=== PATIENT | male | born 1990 | race Caucasian/White ===

== ENCOUNTER 2017-06-06 18:43 | Emergency (ER) | payer OTHER ==
[~2017-06-06] VITALS: Ht 172.7 cm; Wt 94.7 kg
[2017-06-06] MEDS ORDERED: IBUPROFEN 200 MG TABLET ONE (19:15)
[2017-06-06 19:30] LABS: HEMATOCRIT 53.2 % (39.2-51.8); HEMOGLOBIN 18.1 g/dL (13.7-18.0); WHITE BLOOD COUNT 14.8 x10^3/uL (3.4-10)
[2017-06-06] MEDS ORDERED: SODIUM CHLORIDE FLUSH 10ML SYR IVF ONE (19:30)
[2017-06-06] MEDS ORDERED: SODIUM CHLORIDE 0.9% 1,000ML IVBOLUS ONE ×2 (19:30→20:00)
[2017-06-06] MEDS ORDERED: IBUPROFEN 200 MG TABLET PO ONE (19:30)
[2017-06-06 19:41] LABS: BLOOD UREA NITROGEN 16 mg/dL (7-18)
[2017-06-06 20:05] LABS: RAPID INFLUENZA A Negative (Negative); RAPID INFLUENZA B Negative (Negative)
[2017-06-06] MEDS ORDERED: CEFTRIAXONE PMX 1GM/50ML 50 ML ONE (20:17)
[2017-06-06] MEDS ORDERED: CEFTRIAXONE PMX 1GM/50ML 50 ML IVPB ONE (20:30)
[2017-06-06 21:33] VITALS: BP 126/64
== END 2017-06-06 21:47 | disposition home or self-care (01) ==
LOC: ED 20:34
DX: B34.9 Viral infection, unspecified (principal)
CPT/HCPCS: 36415; 71010; 80048; 82040; 83605; 84145; 85025; 87040; 87400; 96361; 96365; 99285; J0696; J7030

== ENCOUNTER 2018-03-29 19:03 | Emergency (ER) | payer OTHER ==
[~2018-03-29] VITALS: Ht 172.7 cm; Wt 98.9 kg
[2018-03-29 19:38] LABS: MEAN CORPUSCULAR HEMOGLOBIN 31.1 pg (27.5-34.5); MEAN CORPUSCULAR HGB CONC 34.8 g/dL (33.2-36.2); MEAN CORPUSCULAR VOLUME 89.5 fL (81-97); MEAN PLATELET VOLUME 8.7 fL (7.4-10.4); PLATELET COUNT 296 x10^3/uL (130-400); RED BLOOD COUNT 5.64 x10^6/uL (4.38-5.82); RED CELL DISTRIBUTION WIDTH 12.4 % (9.4-14.8)
[2018-03-29 19:46] LABS: ALANINE AMINOTRANSFERASE 48 U/L (12-78); ALBUMIN 4.3 g/dL (3.4-5.0); ANION GAP 8 mmol/L (5-15); CALCIUM 9.1 mg/dL (8.5-10.1); CHLORIDE 103 mmol/L (98-107); CREATININE 1.44 mg/dL (0.7-1.3)
[2018-03-29 19:50] LABS: ALKALINE PHOSPHATASE 128 U/L (45-117); BILIRUBIN,TOTAL 0.4 mg/dL (0.2-1.0); TOTAL PROTEIN 8.3 g/dL (6.4-8.2); TROPONIN I < 0.015 ng/mL (0.000-0.045)
[2018-03-29 20:01] LABS: BASOPHILS # (AUTO) 0.06 x10^3/uL (0-0.1); BASOPHILS % (AUTO) 0 % (0-1); EOSINOPHILS # (AUTO) 0.19 x10^3/uL (0-0.4); EOSINOPHILS % (AUTO) 1 % (1-7); LYMPHOCYTES # (AUTO) 3.62 x10^3/uL (1-3.4); LYMPHOCYTES % (AUTO) 18 % (22-44); MD SCAN; MONOCYTES % (AUTO) 6 % (2-9); NEUTROPHILS # (AUTO) 15.04 x10^3/uL (1.8-6.8); NEUTROPHILS % (AUTO) 74 % (42-75)
[2018-03-29] MEDS ORDERED: SODIUM CHLORIDE 0.9% 1,000ML IVBOLUS ONE (20:30)
[2018-03-29] MEDS ORDERED: SODIUM CHLORIDE FLUSH 10ML SYR IVF ONE (20:30)
[2018-03-29] MEDS ORDERED: MORPHINE SULFATE 4 MG/ML, 1ML ONE (20:55)
[2018-03-29] MEDS ORDERED: ONDANSETRON ODT 4 MG ONE (20:55)
[2018-03-29] MEDS ORDERED: morphine SULFATE 10 MG/ML, 1ML IVPush ONE (21:00)
[2018-03-29] MEDS ORDERED: ONDANSETRON ODT 4 MG PO ONE (21:00)
[2018-03-29] MEDS ORDERED: KETOROLAC 30 MG/1 ML ONE (21:53)
[2018-03-29] MEDS ORDERED: KETOROLAC 30 MG/1 ML IVPush ONE (22:00)
[2018-03-29 22:32] LABS: TROPONIN I < 0.015 ng/mL (0.000-0.045)
[2018-03-29 23:34] VITALS: BP 143/74
[2018-03-29] MEDS ORDERED: OMNIPAQUE 350 MG/ML, 100ML BOTTLE ONE (23:48)
== END 2018-03-29 23:36 | disposition home or self-care (01) ==
LOC: ED 21:55
DX: R00.0 Tachycardia, unspecified (principal); E86.0 Dehydration; Z87.891 Personal history of nicotine dependence
CPT/HCPCS: 36415; 71045; 71275; 74175; 80053; 84484; 85025; 93005; 96361; 96374; 96375; 99285; J1885; J2270; J7030; Q0162; Q9967